=== PATIENT | male | born 1990 | race Caucasian/White ===

== ENCOUNTER 2019-06-16 18:26 | Emergency (ER) | payer MEDICAID ==
[~2019-06-16] VITALS: Ht 172.7 cm; Wt 64.0 kg
[2019-06-16] MEDS ORDERED: SODIUM CHLORIDE 0.9% 1,000 ML IV ONE (19:15)
[2019-06-16] MEDS ORDERED: ONDANSETRON HCL 4MG/2ML INJ IV STA (19:15)
[2019-06-16 19:34] LABS: BASOPHILS % 0.4 % (0.0-2.0); EOSINOPHILS % 0.9 % (0.0-5.0); HEMATOCRIT. 41.9 % (42.0-52.0); LYMPHOCYTES % 42.7 % (20.0-50.0); MEAN PLATELET VOLUME 9.7 fl (7.4-10.4); MONOCYTES % 8.6 % (2.0-8.0); NEUTROPHILS % 47.4 % (40.0-76.0); PLATELET 165 x1000/uL (130-400); RED BLOOD CELL COUNT 4.65 mill/uL (4.7-6.1); RED CELL DISTRIBUTION WIDTH 12.9 % (11.6-14.6)
[2019-06-16 19:40] LABS: CHLORIDE 106 mEq/L (98-107)
[2019-06-16 19:45] LABS: ETHANOL BLOOD < 10 mg/dL
[2019-06-16 19:50] LABS: CREATINE KINASE 173 IU/L (39-308)
[2019-06-16 19:52] LABS: CREATINE KINASE MB FRACTION 1.4 ng/mL (0.5-3.6)
[2019-06-16] MEDS ORDERED: POTASSIUM CHLORIDE 20MEQ TABLET SR PO ONE (21:00)
[2019-06-16 23:13] VITALS: BP 118/62
== END 2019-06-16 23:16 | disposition home or self-care (01) ==
LOC: ER 18:26
DX: R53.1 Weakness (principal); E86.0 Dehydration; R07.89 Other chest pain; M25.511 Pain in right shoulder; M79.601 Pain in right arm; R00.1 Bradycardia, unspecified; R03.0 Elevated blood-pressure reading, without diagnosis of hypertension; R94.31 Abnormal electrocardiogram [ECG] [EKG]
CPT/HCPCS: 36415; 71045; 80053; 80320; 82550; 82553; 83690; 83880; 84443; 84484; 85025; 85379; 93005; 96361; 96374; 99284; J2405; J7030; G0480